=== PATIENT | female | born 1980 | race Caucasian/White ===

== ENCOUNTER 2017-07-06 06:37 | Emergency (ER) | payer SELFPAY ==
[~2017-07-06] VITALS: Ht 180.3 cm; Wt 62.0 kg
[2017-07-06 06:38] VITALS: BP 126/70; PULSE 60; RESP 15; TEMP 98.7; O2SAT 100
[2017-07-06] MEDS ORDERED: ONDANSETRON HCL 4 MG/2 ML VIAL IV ONE (07:30)
[2017-07-06] MEDS ORDERED: SODIUM CHLOR 0.9% 1000 ML INJ 1,000 ML IV ONE (07:30)
--- NOTE | 2017-07-06 07:31 | PD ---
HPI Chief Complaint: GI Complaint Time Seen by Provider: 07:13 Travel History International Travel<30 days: No Contact w/Intl Traveler<30days: No Traveled to known affect area: No History of Present Illness HPI The patient was seen and examined in the presence of the nurse. This patient complains of nausea and vomiting and diarrhea. Duration is 2 days. Severity is moderate. No ill contacts. She denies fever. No vaginal discharge or bleeding. She doesn't think she is . Has some occasional abdominal cramps but not sustained. sHe reports that the symptoms started shortly after eating some crab. She feels thirsty. She has not had vomiting this morning But did yesterday PFSH Past Medical History Bipolar Disorder: Yes Diminished Hearing: No Thyroid Disease: Yes (HYPER) ?: Not LMP: 06/06/17 : 2 Para: 2 Past Surgical History Surgical History: No Previous Surgery Social History Alcohol Use: Yes (rare) Tobacco Use: No (QUIT / ppd 11/04/16) Substance Use: No Allergies-Medications (Allergen,Severity, Reaction): Coded Allergies: penicillin G (Unverified Allergy, Severe, THROAT SWELLS, 07/06/17) Reported Meds & Prescriptions Reported Meds & Active Scripts Active No Active Prescriptions or Reported Medications Review of Systems General / Constitutional: No: Fever Eyes: No: Visual changes HENT: No: Headaches Cardiovascular: No: Chest Pain or Discomfort Respiratory: No: Shortness of Breath Gastrointestinal: Positive: Nausea, Vomiting, Diarrhea, Abdominal Pain Genitourinary: No: Dysuria Musculoskeletal: No: Pain Skin: No Rash Neurologic: No: Weakness Psychiatric: No: Depression Endocrine: No: Polydipsia Hematologic/Lymphatic: No: Easy Bruising Physical Exam Narrative GENERAL: Well-nourished, well-developed patient in no apparent distress. SKIN: Focused skin assessment reveals no rash and nodules. Skin is Warm and dry. HEAD: Atraumatic. Normocephalic. EYES: Pupils equal and round. No scleral icterus. No injection or drainage. ENT: No nasal bleeding or discharge. Mucous membranes pink and moist. NECK: Trachea midline. No JVD. CARDIOVASCULAR: Regular rate and rhythm. No murmur appreciated. RESPIRATORY: No accessory muscle use. Clear to auscultation. Breath sounds equal bilaterally. GASTROINTESTINAL: Abdomen soft, non-tender, nondistended. Hepatic and splenic margins not palpable. MUSCULOSKELETAL: No obvious deformities. No clubbing. No cyanosis. No edema. NEUROLOGICAL: Awake and alert. No obvious cranial nerve deficits. Motor grossly within normal limits. Normal speech. PSYCHIATRIC: Appropriate mood and affect; insight and judgment normal. Data Data Last Documented VS Vital Signs Date Time Temp Pulse Resp B/P (MAP) Pulse Ox O2 Delivery O2 Flow Rate FiO2 07/06/17 06:38 98.7 60 15 126/70 (88) 100 Room Air Orders Orders Iv Access Insert/Monitor (07/06/17 07:29) Complete Blood Count With Diff (07/06/17 07:29) Basic Metabolic Panel (Bmp) (07/06/17 07:29) Beta Hcg (Quant/Titer) (07/06/17 07:29) Ondansetron Inj (Zofran Inj) (07/06/17 07:30) Sodium Chlor 0.9% 1000 Ml Inj (Ns 1000 M (07/06/17 07:30) Labs Laboratory Tests Test 07/06/17 07:35 White Blood Count 4.6 TH/MM3 Red Blood Count 4.36 MIL/MM3 Hemoglobin 9.1 GM/DL Hematocrit 30.5 % Mean Corpuscular Volume 70.0 FL Mean Corpuscular Hemoglobin 20.9 PG Mean Corpuscular Hemoglobin Concent 29.9 % Red Cell Distribution Width 18.3 % Platelet Count 242 TH/MM3 Mean Platelet Volume 7.2 FL Neutrophils (%) (Auto) 64.9 % Lymphocytes (%) (Auto) 28.0 % Monocytes (%) (Auto) 6.4 % Eosinophils (%) (Auto) 0.1 % Basophils (%) (Auto) 0.6 % Neutrophils # (Auto) 3.0 TH/MM3 Lymphocytes # (Auto) 1.3 TH/MM3 Monocytes # (Auto) 0.3 TH/MM3 Eosinophils # (Auto) 0.0 TH/MM3 Basophils # (Auto) 0.0 TH/MM3 CBC Comment DIFF FINAL Differential Comment Blood Urea Nitrogen 12 MG/DL Creatinine 0.66 MG/DL Random Glucose 87 MG/DL Calcium Level 8.5 MG/DL Sodium Level 140 MEQ/L Potassium Level 3.8 MEQ/L Chloride Level 109 MEQ/L Carbon Dioxide Level 24.6 MEQ/L Anion Gap 6 MEQ/L Estimat Glomerular Filtration Rate 101 ML/MIN Human Chorionic Gonadotropin, Quant LESS THAN 1 MIU/ML MDM Medical Decision Making Medical Screen Exam Complete: Yes Emergency Medical Condition: Yes Medical Record Reviewed: Yes Differential Diagnosis Gastroenteritis, food poisoning, dehydration, colitis, ectopic Narrative Course I have reviewed the patient's electronic medical record. IV placed CBC shows normal white count and anemic at 9.1 metabolic profile is normal Beta hCG is negative I gave her 1 L normal saline IV bolus and IV Zofran Abdomen is soft and benign and nontender Stable for outpatient follow-up May have gastroenteritis or food poisoning Diagnosis Primary Impression: Nausea vomiting and diarrhea Additional Instructions: The patient was advised to follow up with their physician and return if they worsen. I have recommended clear liquids for 24 hours, then gradually advance as tolerated. Med/Other Pt SpecificInfo: Prescription(s) given Scripts Ondansetron (Zofran) 4 Mg Tab 4 MG PO Q6HR Y for NAUSEA OR VOMITING, #12 TAB 0 Refills Prov: Ramiro Medrano MD 07/06/17 Disposition: 01 DISCHARGE HOME Condition: Stable Ramiro Medrano MD Jul 06, 2017 07:31
[2017-07-06 07:45] LABS: BASOPHIL % 0.6 % (0.0-2.0); EOSINOPHIL % 0.1 % (0.0-4.0); HEMATOCRIT 30.5 % (35.0-46.0); HEMO FLAGS DIFF FINAL; LYMPHOCYTE # 1.3 TH/MM3 (1.0-4.8); MEAN CORPUSCULAR HEMOGLOBIN 20.9 PG (27.0-34.0); MONO % 6.4 % (0.0-8.0); NEUT % 64.9 % (16.0-70.0); PLATELET COUNT 242 TH/MM3 (150-450); RED BLOOD COUNT 4.36 MIL/MM3 (4.00-5.30); RED CELL DISTRIBUTION WIDTH 18.3 % (11.6-17.2); WHITE BLOOD COUNT 4.6 TH/MM3 (4.0-11.0)
[2017-07-06 07:50] LABS: MEAN CORPUSCULAR HGB CONC 29.9 % (32.0-36.0)
[2017-07-06 08:08] LABS: ANION GAP 6 MEQ/L (5-15); BICARBONATE 24.6 MEQ/L (21.0-32.0); BLOOD UREA NITROGEN 12 MG/DL (7-18); CHLORIDE 109 MEQ/L (98-107); GLOMERULAR FILTRATION RATE 101 ML/MIN (>89); POTASSIUM 3.8 MEQ/L (3.5-5.1); SODIUM (NA) 140 MEQ/L (136-145)
[2017-07-06 08:12] LABS: BETA HCG QUANT LESS THAN 1 MIU/ML (0-5)
[2017-07-06] MEDS ORDERED: ZOFR4TAB PO (09:16)
== END 2017-07-06 09:36 | disposition home or self-care (01) ==
LOC: NEPE 06:37
DX: R11.2 Nausea with vomiting, unspecified (principal); R19.7 Diarrhea, unspecified
CPT/HCPCS: 80048; 84702; 85025; 96361; 96374; 99284; J2405; J7030

== ENCOUNTER 2018-01-11 05:46 | Emergency (ER) | payer BC ==
[~2018-01-11] VITALS: Ht 180.3 cm; Wt 62.9 kg
[~2018-01-11 05:46] MED LIST: ZOFR4TAB PO
[2018-01-11 05:51] VITALS: BP 117/55; PULSE 70; TEMP 98.3; O2SAT 99
[2018-01-11 05:59] VITALS: BP 117/55; PULSE 70; RESP 18; TEMP 98.3; O2SAT 99
[2018-01-11] MEDS ORDERED: ACETAMINOPHEN 500 MG CPLT PO ONE (06:00)
[2018-01-11] MEDS ORDERED: PSEUDOEPHEDRINE HCL 30 MG TAB PO ONE (06:30)
[2018-01-11] MEDS ORDERED: diphenhydrAMINE HCL ELIXIR 12.5 MG/5 ML CUP PO ONE (06:30)
[2018-01-11] MEDS ORDERED: KETOROLAC TROMETHAMINE 60 MG/2 ML (IM) VIAL IM ONE (06:30)
[2018-01-11] MEDS ORDERED: guaiFENesin/CODEINE SYRUP 200 MG/20 MG/10 ML CUP PO ONE (06:30)
--- NOTE | 2018-01-11 06:39 | PD ---
HPI . fever body aches Chief Complaint: Cold / Flu Symptoms Time Seen by Provider: 05:51 Travel History International Travel<30 days: No Contact w/Intl Traveler<30days: No Traveled to known affect area: No History of Present Illness HPI Patient reports that she for 3 days she has had progressive worsening of symptoms of upper respiratory congestion sore throat mild cough body aches fever. She is to Tylenol without any relief of her symptoms. She comes at 5 AM to the ER with cold and flulike symptoms body aches and fever body aches generalized and she feels like she stuffed up and now everything is running but she cannot seem to get any phlegm out or congestion out of her nose. She has not seen another doctor for this and she is only taking Tylenol last Tylenol she took was at 2 AM without relief of her symptoms PFSH Past Medical History Bipolar Disorder: Yes Diminished Hearing: No Thyroid Disease: Yes (HYPER) Influenza Vaccination: No ?: Unknown LMP: 12/16/2017 : 2 Para: 2 Past Surgical History Surgical History: No Previous Surgery Social History Alcohol Use: Yes (rare) Tobacco Use: No (QUIT / ppd 11/04/16) Substance Use: Yes (Marijuana) Allergies-Medications (Allergen,Severity, Reaction): Coded Allergies: penicillin G (Verified Allergy, Severe, THROAT SWELLS, 01/11/18) Reported Meds & Prescriptions Reported Meds & Active Scripts Active Ibuprofen 600 Mg Tab 600 Mg PO Q6H PRN Diphenhydramine (Diphenhydramine HCl) 25 Mg Cap 25 Mg PO Q6H PRN Pseudoephedrine ER 12 HR (Pseudoephedrine HCl) 120 Mg Tab 120 Mg PO BID Guaifenesin AC Liq (Guaifenesin-Codeine Liq) 100-10 Mg/5 Ml Syrp 10 Ml PO Q6H PRN Review of Systems Except as stated in HPI: all other systems reviewed are Neg General / Constitutional: Positive: Fever, Chills Respiratory: Positive: Cough Musculoskeletal: Positive: Myalgias, Weakness Physical Exam Narrative GENERAL: Patient appears congested tearful sounds nasal congestion SKIN: Warm and dry. HEAD: Atraumatic. Normocephalic. EYES: Pupils equal and round. No scleral icterus. No injection or drainage. ENT: No nasal bleeding or discharge. Mucous membranes pink and moist. Posterior pharynx erythematous but no exudate NECK: Trachea midline. No JVD. No significant swelling of the sub-mental lymph nodes CARDIOVASCULAR: Regular rate and rhythm. RESPIRATORY: No accessory muscle use. Clear to auscultation. Breath sounds equal bilaterally. Lungs are clear to auscultation there is no wheeze heard GASTROINTESTINAL: Abdomen soft, non-tender, nondistended. Hepatic and splenic margins not palpable. MUSCULOSKELETAL: Extremities without clubbing, cyanosis, or edema. No obvious deformities. NEUROLOGICAL: Awake and alert. No obvious cranial nerve deficits. Motor grossly within normal limits. Five out of 5 muscle strength in the arms and legs. Normal speech. PSYCHIATRIC: Appropriate mood and affect; insight and judgment normal. Data Data Last Documented VS Vital Signs Date Time Temp Pulse Resp B/P (MAP) Pulse Ox O2 Delivery O2 Flow Rate FiO2 01/11/18 06:59 70 16 97/85 (89) 100 01/11/18 06:05 Room Air 01/11/18 05:59 98.3 Orders Orders Influenzae A/B Antigen (01/11/18 05:51) Group A Rapid Strep Screen (01/11/18 05:51) Acetaminophen (Tylenol) (01/11/18 06:00) Ed Urine Pregnancytest Poc (01/11/18 05:53) Diphenhydramine Liq (Benadryl Liq) (01/11/18 06:30) Pseudoephedrine (Sudafed) (01/11/18 06:30) Ketorolac Inj (Toradol Inj) (01/11/18 06:30) Guaifen-Cod 200-20 Mg/10ml Liq (Robituss (01/11/18 06:30) Strep Culture (Group A) (01/11/18 06:10) Ed Discharge Order (01/11/18 06:49) MDM Medical Decision Making Medical Screen Exam Complete: Yes Emergency Medical Condition: Yes Medical Record Reviewed: Yes Differential Diagnosis Patient has possibly viral bronchitis versus pneumonia versus influenza versus pneumonia versus strep throat Narrative Course Swabs are sent for flu swabs are sent first rapid strep patient is given some dramatic treatment with IM Toradol Sudafed Benadryl guaifenesin awaiting results of her's flu swab to see if she needs Tamiflu versus strep being positive needing antibiotics. AWAITING FLU AND RAPID AND UA RESULT < PT IS TREATED SYMPTOMATICALLY Diagnosis Primary Impression: Viral respiratory illness Patient Instructions: General Instructions, Viral Syndrome (ED) Scripts Ibuprofen (Ibuprofen) 600 Mg Tab 600 MG PO Q6H Y for Pain/Inflammation, #20 TAB 0 Refills Prov: Adin Davila MD 01/11/18 Diphenhydramine (Diphenhydramine) 25 Mg Cap 25 MG PO Q6H Y for ALLERGIES, #20 CAP 0 Refills Prov: Adin Davila MD 01/11/18 Pseudoephedrine ER 12 HR (Pseudoephedrine ER 12 HR) 120 Mg Tab 120 MG PO BID for Decongestant, #10 TAB 0 Refills Prov: Adin Davila MD 01/11/18 Guaifenesin-Codeine Liq (Guaifenesin AC Liq) 100-10 Mg/5 Ml Syrp 10 ML PO Q6H Y for COUGH, #1 BOTTLE 0 Refills Prov: Adin Davila MD 01/11/18 Adin Davila MD January 11, 2018 06:39
[2018-01-11] MEDS ORDERED: GUAISYP4 PO (06:43)
[2018-01-11] MEDS ORDERED: IBUP-232 PO (06:43)
[2018-01-11] MEDS ORDERED: DIPH25CA PO (06:43)
[2018-01-11] MEDS ORDERED: PSEU1TAB17 PO (06:43)
[2018-01-11 06:59] VITALS: BP 97/85
== END 2018-01-11 07:00 | disposition home or self-care (01) ==
LOC: PHED 05:46
DX: J98.9 Respiratory disorder, unspecified (principal); B34.9 Viral infection, unspecified; F31.9 Bipolar disorder, unspecified; E05.90 Thyrotoxicosis, unspecified without thyrotoxic crisis or storm; Z87.891 Personal history of nicotine dependence; F12.90 Cannabis use, unspecified, uncomplicated
CPT/HCPCS: 87081; 87804; 87880; 96372; 99283; J1885